=== PATIENT | male | born 1965 ===

== ENCOUNTER 2016-11-04 18:48 | Emergency (ER) | payer SELFPAY | END 2016-11-04 19:45 | disposition home or self-care (01) | LOC: ED 18:48 | DX: K64.4 Residual hemorrhoidal skin tags (principal); E11.9 Type 2 diabetes mellitus without complications; Z79.84 Long term (current) use of oral hypoglycemic drugs ==

== ENCOUNTER 2016-11-19 20:04 | Emergency (ER) | payer SELFPAY | END 2016-11-19 22:34 | disposition home or self-care (01) | LOC: ED 20:04 | DX: K64.9 Unspecified hemorrhoids (principal) ==